=== PATIENT | male | born 1950 | race Caucasian/White ===

== ENCOUNTER → 2023-06-26 | Outpatient (CLI) | payer MEDICARE, OTHER ==
[2017-03-19 09:27] VITALS: BP 134/73
[~2023-06-26] MED LIST: FOLIC ACID1 MG; GEMFIBROZIL600 M1 PO; NATURAL IRON65 MG; SYNTHROID0.2 MG/TAB PO; VITAMIN C500 MG; ZYLOPRIM 100MG100 MG PO; ZYLOPRIM 300MG300 MG PO
== END ==
LOC: RAD 18:09
DX: M48.56XS Collapsed vertebra, not elsewhere classified, lumbar region, sequela of fracture (principal); M47.817 Spondylosis without myelopathy or radiculopathy, lumbosacral region; M51.37 Other intervertebral disc degeneration, lumbosacral region

== ENCOUNTER → 2023-11-25 | Outpatient (CLI) | payer MEDICARE, OTHER ==
[2023-11-25 10:07] LABS: HEMATOCRIT 43.3 % (42.0-52.0); HEMOGLOBIN 14.1 g/dL (13.5-18.0); MEAN PLATELET VOLUME 8.6 fl (7.4-10.4); RED BLOOD COUNT 4.54 M/mm3 (4.20-5.60); RED CELL DISTRIBUTION WIDTH 13.6 % (11.5-14.5); WHITE BLOOD COUNT 5.9 K/mm3 (4.8-10.8)
== END ==
LOC: LAB 09:58
PROVIDERS: Urology
DX: N40.1 Benign prostatic hyperplasia with lower urinary tract symptoms (principal)

== ENCOUNTER → 2024-07-20 | Outpatient (CLI) | payer MEDICARE, OTHER ==
[2024-07-20 08:38] LABS: ALBUMIN 3.6 g/dL (3.4-4.8)
[2024-07-20 08:40] LABS: TOTAL PROTEIN 6.8 g/dL (6.2-8.1)
[2024-07-20 08:42] LABS: TOTAL BILIRUBIN 0.4 mg/dL (0.2-1.2)
[2024-07-20 08:47] LABS: MAGNESIUM 1.94 mg/dL (1.60-2.60)
== END ==
LOC: LAB 08:16
PROVIDERS: Physician Assistant
DX: Z12.5 Encounter for screening for malignant neoplasm of prostate (principal); M1A.00X0 Idiopathic chronic gout, unspecified site, without tophus (tophi); E03.9 Hypothyroidism, unspecified; E78.2 Mixed hyperlipidemia; R25.2 Cramp and spasm; R73.03 Prediabetes